=== PATIENT | male | born 1990 | race Two or more races ===

== ENCOUNTER 2020-10-11 15:05 | Emergency (ER) | payer SELFPAY ==
[~2020-10-11] VITALS: Ht 175.3 cm; Wt 130.6 kg
[2020-10-11 15:18] VITALS: BP 147/93; Ht 175.3 cm; Wt 130.6 kg
== END 2020-10-11 16:00 | disposition home or self-care (01) ==
LOC: ED 15:05
DX: M54.5 Low back pain (principal)

== ENCOUNTER 2020-10-15 03:04 | Emergency (ER) | payer MEDICAID ==
[~2020-10-15] VITALS: Ht 175.3 cm; Wt 133.4 kg
[2020-10-15 04:22] VITALS: BP 123/84; Ht 175.3 cm; Wt 133.4 kg
[2020-10-15] MEDS ORDERED: NORCO1 TA2 PO ×2 (06:34→06:43)
== END 2020-10-15 06:45 | disposition home or self-care (01) ==
LOC: ED 03:04
DX: R10.13 Epigastric pain (principal)